=== PATIENT | male | born 1960 ===

== ENCOUNTER 2020-04-01 08:15 | Emergency (ER) | payer MEDICAID ==
[~2020-04-01] VITALS: Ht 180.3 cm; Wt 73.8 kg
[2020-04-01] MEDS ORDERED: DEXAMETHASONE 4 MG/ML, 5ML ONE (08:57)
[2020-04-01] MEDS ORDERED: DEXAMETHASONE 4 MG/ML, 1ML PO ONE (09:00)
[2020-04-01] MEDS ORDERED: AZITHROMYCIN 500 MG in SODIUM CHLORIDE 0.9% 250 ML IV ONE (09:30)
[2020-04-01] MEDS ORDERED: SODIUM CHLORIDE 0.9% 1,000ML IVBOLUS ONE (09:30)
[2020-04-01] MEDS ORDERED: MAALOX/HYOSCYAMINE/LIDOCAINE 45 ML BTL ONE (09:53)
[2020-04-01] MEDS ORDERED: MAALOX/HYOSCYAMINE/LIDOCAINE 45 ML BTL PO ONE (10:00)
[2020-04-01 10:18] LABS: BASOPHILS % (AUTO) 0 % (0-1); EOSINOPHILS % (AUTO) 0 % (1-7); LYMPHOCYTES % (AUTO) 9 % (22-44); MEAN CORPUSCULAR HEMOGLOBIN 31.9 pg (27.5-34.5); MEAN CORPUSCULAR HGB CONC 35.5 g/dL (33.2-36.2); MEAN PLATELET VOLUME 9.1 fL (7.4-10.4); MONOCYTES % (AUTO) 5 % (2-9); NEUTROPHILS % (AUTO) 86 % (42-75); PLATELET COUNT 182 x10^3/uL (130-400); RED BLOOD COUNT 5.44 x10^6/uL (4.38-5.82); RED CELL DISTRIBUTION WIDTH 13.5 % (9.4-14.8)
[2020-04-01 10:28] LABS: ALBUMIN 4.1 g/dL (3.4-5.0); ANION GAP 11 mmol/L (5-15); CHLORIDE 107 mmol/L (98-107)
[2020-04-01 10:32] LABS: ALANINE AMINOTRANSFERASE 74 U/L (12-78); ALKALINE PHOSPHATASE 98 U/L (45-117); BILIRUBIN,TOTAL 1.6 mg/dL (0.2-1.0); CREATININE 0.85 mg/dL (0.7-1.3); TOTAL PROTEIN 7.1 g/dL (6.4-8.2)
[2020-04-01 11:06] LABS: MD SCAN
[2020-04-01 11:13] LABS: TROPONIN I < 0.015 ng/mL (0.000-0.045)
[2020-04-01 11:29] VITALS: BP 135/88
--- NOTE | 2020-04-01 11:37 | NUR ---
PT LEFT ROOM BEFORE RN DC'D IV.
--- NOTE | 2020-04-01 11:42 | NUR ---
[facility] CONTACTED TO INFORM PT LEFT HOSPITAL WITH IV IN PLACE. PER [facility] THEY WILL PUT OUT A CALL AND HAVE PT RETURN TO ER IF IV STILL IN PLACE.
--- NOTE | 2020-04-01 12:13 | NUR ---
PT BACK IN ER. IV DC'D WITH TIP INTACT.
== END 2020-04-01 11:46 | disposition home or self-care (01) ==
LOC: ED 11:20
DX: J15.9 Unspecified bacterial pneumonia (principal); Z20.828 Contact with and (suspected) exposure to other viral communicable diseases; R00.0 Tachycardia, unspecified; J45.909 Unspecified asthma, uncomplicated
CPT/HCPCS: 71045; 80053; 84484; 85025; 87635; 93005; 96361; 96365; 99285; J0456; J1100; J7030; J7050; 96360